=== PATIENT | female | born 1990 | race Caucasian/White ===

== ENCOUNTER 2017-02-18 20:04 | Emergency (ER) | payer BC, MEDICARE, OTHER ==
[~2017-02-18] VITALS: Ht 170.2 cm; Wt 75.6 kg
[~2017-02-18 20:04] MED LIST: AMOX500T PO; FIORIC PO; Z.0.BCPILL PO
[2017-02-18 22:12] VITALS: PULSE 89; RESP 18; TEMP 97.6
--- NOTE | 2017-02-18 22:25 | PD ---
HPI Chief Complaint: Abdominal Pain Time Seen by Provider: 22:21 Travel History International Travel<30 days: No Contact w/Intl Traveler<30days: No Traveled to known affect area: No History of Present Illness HPI This 26-year-old female says she was in usual state of health until 3:00 this afternoon. She had a fairly abrupt onset of vomiting and diarrhea. She does not think she is . There is been no travel. He can't think of anything unusual that she ate. She has children at home but they have not been sick [facility] Past Medical History Medical History: Denies Significant Hx Diminished Hearing: No ?: Unknown LMP: 02/10/17 : 2 Para: 2 Miscarriage: 0 : 0 Past Surgical History Surgical History: No Previous Surgery Section: Yes Social History Alcohol Use: Yes (ocassional) Tobacco Use: No Substance Use: No Allergies-Medications (Allergen,Severity, Reaction): Coded Allergies: No Known Allergies (Unverified , 02/18/17) Reported Meds & Prescriptions Reported Meds & Active Scripts Active No Active Prescriptions or Reported Medications Review of Systems General / Constitutional: No: Fever, Chills Eyes: No: Diploplia, Blurred Vision HENT: No: Headaches Cardiovascular: No: Chest Pain or Discomfort, Palpitations Respiratory: No: Cough, Shortness of Breath Gastrointestinal: Positive: Vomiting, Diarrhea Genitourinary: No: Urgency, Frequency Musculoskeletal: No: Myalgias, Arthralgias Skin: No Rash, No Itching Physical Exam Narrative GENERAL: Well-developed female SKIN: Focused skin assessment warm/dry. HEAD: Atraumatic. Normocephalic. EYES: Pupils equal and round. No scleral icterus. No injection or drainage. ENT: No nasal bleeding or discharge. Mucous membranes pink and moist. NECK: Trachea midline. No JVD. CARDIOVASCULAR: Regular rate and rhythm. No murmur appreciated. RESPIRATORY: No accessory muscle use. Clear to auscultation. Breath sounds equal bilaterally. GASTROINTESTINAL: Abdomen soft, non-tender, nondistended. Hepatic and splenic margins not palpable. MUSCULOSKELETAL: No obvious deformities. No clubbing. No cyanosis. No edema. NEUROLOGICAL: Awake and alert. No obvious cranial nerve deficits. Motor grossly within normal limits. Normal speech. PSYCHIATRIC: Appropriate mood and affect; insight and judgment normal. Data Data Last Documented VS Vital Signs Date Time Temp Pulse Resp B/P Pulse Ox O2 Delivery O2 Flow Rate FiO2 02/18/17 22:39 92 127/73 Room Air 02/18/17 22:12 97.6 18 Orders Complete Blood Count With Diff (02/18/17 22:21) Basic Metabolic Panel (Bmp) (02/18/17 22:21) Sodium Chlor 0.9% 1000 Ml Inj (Ns 1000 M (02/18/17 22:30) Sodium Chlor 0.9% 1000 Ml Inj (Ns 1000 M (02/18/17 22:30) Ondansetron Inj (Zofran Inj) (02/18/17 22:30) Loperamide (Imodium) (02/18/17 22:30) Urinalysis - C+S If Indicated (02/18/17 22:52) Ed Urine Pregnancytest Poc (02/18/17 22:52) Labs Laboratory Tests Test 02/18/17 22:22 White Blood Count 19.5 TH/MM3 Red Blood Count 5.43 MIL/MM3 Hemoglobin 16.3 GM/DL Hematocrit 48.5 % Mean Corpuscular Volume 89.3 FL Mean Corpuscular Hemoglobin 30.0 PG Mean Corpuscular Hemoglobin 33.6 % Concent Red Cell Distribution Width 11.8 % Platelet Count 229 TH/MM3 Mean Platelet Volume 9.7 FL Neutrophils (%) (Auto) 92.5 % Lymphocytes (%) (Auto) 2.7 % Monocytes (%) (Auto) 2.5 % Eosinophils (%) (Auto) 0.1 % Basophils (%) (Auto) 2.2 % Neutrophils # (Auto) 18.1 TH/MM3 Lymphocytes # (Auto) 0.5 TH/MM3 Monocytes # (Auto) 0.5 TH/MM3 Eosinophils # (Auto) 0.0 TH/MM3 Basophils # (Auto) 0.4 TH/MM3 CBC Comment DIFF FINAL Differential Comment Sodium Level 143 MEQ/L Potassium Level 3.8 MEQ/L Chloride Level 108 MEQ/L Carbon Dioxide Level 19.5 MEQ/L Anion Gap 16 MEQ/L Blood Urea Nitrogen 21 MG/DL Creatinine 1.00 MG/DL Estimat Glomerular Filtration 68 ML/MIN Rate Random Glucose 176 MG/DL Calcium Level 9.8 MG/DL MDM Medical Decision Making Medical Screen Exam Complete: Yes Emergency Medical Condition: Yes Medical Record Reviewed: Yes Differential Diagnosis Differential includes food poisoning, gastroenteritis, dehydration Narrative Course Her white count is 19,000. She has been given IV fluids and Zofran . She reports that her nausea has subsided and she has been able to take oral fluids. She has not had much abdominal pain Diagnosis Primary Impression: Acute gastroenteritis Scripts Ondansetron Odt (Zofran Odt)4 Mg Tab4 Mg SL Q6HR PRN (Nausea/Vomiting) #10 TAB Ref 0 Prov:Eduard Galvez MD 02/18/17 Disposition: 01 DISCHARGE HOME Condition: Stable Eduard Galvez MD Feb 18, 2017 22:25
[2017-02-18] MEDS ORDERED: SODIUM CHLOR 0.9% 1000 ML INJ 1,000 ML IV ONE ×2 (22:30)
[2017-02-18] MEDS ORDERED: ONDANSETRON HCL 4 MG/2 ML VIAL IV PUSH ONE ×2 (22:30→23:45)
[2017-02-18] MEDS ORDERED: LOPERAMIDE HCL 2 MG CAP PO ONE (22:30)
[2017-02-18 22:34] LABS: AUTOMATED NEUTROPHIL # 18.1 TH/MM3 (1.8-7.7); BASOPHIL # 0.4 TH/MM3 (0-0.2); BASOPHIL % 2.2 % (0.0-2.0); EOSINOPHIL % 0.1 % (0.0-4.0); HEMATOCRIT 48.5 % (35.0-46.0); LYMPH % 2.7 % (9.0-44.0); LYMPHOCYTE # 0.5 TH/MM3 (1.0-4.8); MEAN CELL VOLUME 89.3 FL (80.0-100.0); MEAN CORPUSCULAR HGB CONC 33.6 % (32.0-36.0); MONO % 2.5 % (0.0-8.0); NEUT % 92.5 % (16.0-70.0); PLATELET COUNT 229 TH/MM3 (150-450); RED BLOOD COUNT 5.43 MIL/MM3 (4.00-5.30); RED CELL DISTRIBUTION WIDTH 11.8 % (11.6-17.2); WHITE BLOOD COUNT 19.5 TH/MM3 (4.0-11.0)
[2017-02-18 22:39] VITALS: BP 127/73; PULSE 92
[2017-02-18 22:42] LABS: HEMO FLAGS DIFF FINAL
[2017-02-18 22:44] LABS: POTASSIUM 3.8 MEQ/L (3.5-5.1)
[2017-02-18 22:47] LABS: BICARBONATE 19.5 MEQ/L (21.0-32.0)
[2017-02-18 23:15] LABS: BLOOD, URINE TRACE (NEG); GLUCOSE,URINE NEG (NEG); KETONE, URINE 40 mg/dL (NEG); NITRITE,URINE NEG (NEG); PH, URINE 5.5 (5.0-8.5)
[2017-02-18 23:23] LABS: URINE COLOR AMBER (YELLW/STRAW)
[2017-02-18 23:24] LABS: MUCUS URINE MOD /lpf (OCC); SQUAMOUS EPITHELIAL CELL URINE > 8 /hpf (0-5)
[2017-02-18] MEDS ORDERED: ZOFR4TAB3 SL (23:25)
[2017-02-18 23:26] LABS: COMMENT (UR) CULT NOT INDICATED; CULTURE IF INDICATED CULT NOT INDICATED; WBC, URINE 0-2 /hpf (0-5)
[2017-02-18 23:27] LABS: BACTERIA, URINE OCC /hpf
== END 2017-02-19 00:09 | disposition home or self-care (01) ==
LOC: PHED 20:04
DX: K52.9 Noninfective gastroenteritis and colitis, unspecified (principal)
CPT/HCPCS: 80048; 81001; 84703; 85025; 96361; 96374; 96376; 99284; J2405; J7030